=== PATIENT | male | born 1975 | race Caucasian/White ===

== ENCOUNTER 2016-08-13 21:18 | Emergency (ER) | payer BC ==
--- NOTE | 2016-08-13 21:39 | UC ---
Cardiac HPI - HPI Summary HPI Summary: The patient comes in today for: 1. Chest pain: Onset: one hour ago. Palliative/provocative: Nothing makes it better or worse, but he got it as he got up from the dinner table and was walking away. Quality: Burning, sharp. Region/radiation: Retrosternal with radiation up into the neck to the bottom of his jaw. Severity: 08/20 Time: Comes and goes. The patient is better than before. Associated symptoms: Event: He was got up from the dinner table and was walking out when he experienced it. Nausea: None Dyspnea: None. CAD risk factors: HTN: borderline, but "no dagnosis.", DM: (-), Previous heart problems: (-), Fm Hx premature heart disease: (-), cholesterol: "good." Smoker: (-) GERD: Once in a great while. But, this is different than his usual heartburn. His is very concerned about this as "he never complains." * - History of Current Complaint Stated Complaint: CHEST PAIN Time Seen by Provider: 08/13/16 21:29 Hx Obtained From: Patient - Allergy/Home Medications Allergies/Adverse Reactions: Allergies Allergy/AdvReac Type Severity Reaction Status Date / Time No Known Allergies Allergy Verified 08/13/16 21:25 Home Medications: Home Medications Aspirin [Aspirin Adult Low Strengt] 08/13/16 [History] PMH/Surg Hx/FS Hx/Imm Hx Previously Healthy: Yes Endocrine History Of: Denies: Diabetes, Thyroid Disease, Hyperthyroidism, Hypothyroidism, Dyslipidemia Cardiovascular History Of: Denies: Cardiac Disorders, Hypertension, Pacemaker/ICD, Myocardial Infarction , Congestive Heart Failure, Atrial Fibrillation, Deep Vein Thrombosis, Bleeding Disorders Respiratory History Of: Denies: COPD, Asthma, Bronchitis, Pneumonia, Pulmonary Embolism GI/ History Of: Denies: Gastroesophageal Reflux, Ulcer, Gastrointestinal Bleed, Gall Bladder Disease, Kidney Stones, Diverticulitis, Renal Disease, Urosepsis Neurological History Of: Denies: TIA, CVA, Dementia, Seizures, Migraine Psychological History Of: Denies: Anxiety, Depression, Bipolar Disorder, Schizophrenia, Post Traumatic Stress Disorder Cancer History Of: Denies: Lung Cancer, Colorectal Cancer, Breast Cancer, Prostate Cancer, Cervical Cancer Other History Of: Negative For: HIV, Hepatitis B, Hepatitis C, Anticoagulant Therapy - Aspirin not taken daily. - Surgical History Surgical History: Yes Surgery Procedure, Year, and Place: ARTHROSCOPIC LEFT KNEE - Family History Known Family History: Positive: Cardiac Disease - congenital valvular disease, Diabetes Negative: Hypertension - Social History Occupation: Employed Full-time Alcohol Use: Weekly Alcohol Amount: 6/WEEK Substance Use Type: None Smoking Status (MU): Never Smoked Tobacco - Immunization History Most Recent Tetanus Shot: believes he is up to date Review of Systems Constitutional: Negative Skin: Negative Eyes: Negative ENT: Negative Respiratory: Negative Cardiovascular: Negative Gastrointestinal: Negative Genitourinary: Negative Motor: Negative All Other Systems Reviewed And Are Negative: Yes Physical Exam Triage Information Reviewed: Yes Appearance: Well-Appearing, No Pain Distress, Well-Nourished Vital Signs Reviewed: Yes Eyes: Positive: Conjunctiva Clear. Negative: Discharge ENT: Positive: Hearing grossly normal. Negative: Pharyngeal erythema, Nasal congestion, Nasal drainage, TM bulging, TM dull, TM red, Tonsillar swelling, Tonsillar exudate Dental: Negative: Gross Decay/Caries @, Dental Fracture @ Neck: Positive: Supple, Nontender, No Lymphadenopathy. Negative: Nuchal Rigidity Respiratory: Positive: Chest non-tender, Lungs clear, No respiratory distress, No accessory muscle use. Negative: Crackles, Wheezing Cardiovascular: Positive: RRR, No Murmur Abdomen Description: Positive: Nontender, No Organomegaly, Soft. Negative: Distended, Guarding Musculoskeletal: Positive: Strength Intact, ROM Intact Neurological: Positive: Alert, Muscle Tone Normal Psychological: Positive: Normal Response To Family, Age Appropriate Behavior, Consolable Skin: Negative: rashes, breakdown Diagnostics - Laboratory Diagnostic Studies Completed/Ordered: EKG: Rate: 59. Rhythm: Sinus. Ectopy: ( -). Acute changes: (-) - Assessment/Plan Course Of Treatment: The patient was told that I did not know for sure what was causing his/her pain. The patient was told that there are many causes for chest pain--some benign, and some life-threatening. And these life- threatening conditions can be present with minimal, atypical, or even no symptoms. Since we don't have the testing modalities that are commonly used to distinguish between the benign. and life-threatening causes and their timely results, the safest option and therefore my formal recommendation was for her to go for further evaluation. He wanted to go to the ER. - Clinical Impression Provider Diagnoses: Atypical chest pain. - Physician Notifications Discussed Patient Care With: Dr. Gale Time Discussed With Above Provider: 21:58 Discharge - Discharge Plan Condition: Stable Disposition: AGAINST MEDICAL ADVICE Referrals: Thompson Portillo MD [Primary Care Provider] - (Please see your primary care provider as soon as you can after you get out of the hospital.)
[2016-08-13] MEDS ORDERED: Aspirin Low Dose CHEW TAB* 81 MG PO ONE (21:59)
[2016-08-13] MEDS ORDERED: Aspirin Low Dose CHEW TAB* 81 MG ONE (22:02)
[2016-08-13 22:21] VITALS: BP 169/101
== END 2016-08-13 22:29 | disposition left against medical advice (07) ==
LOC: UCEAST 21:18
DX: R07.89 Other chest pain (principal)
CPT/HCPCS: 93005; 99213; A9270-GY; G0463

== ENCOUNTER 2016-08-13 22:48 | Emergency (ER) | payer BC ==
[2016-08-13 23:50] LABS: Hematocrit 45 % (42-52); Hemoglobin 14.9 g/dl (14.0-18.0); Mean Corpuscular HGB Conc 33 g/dl (31-36); Mean Corpuscular Hemoglobin 29 pg (27-31); Mean Corpuscular Volume 86 fL (80-94); Mean Platelet Volume 8 um3 (7.4-10.4); Red Blood Count 5.16 10^6/ul (4.0-5.4); Red Cell Distribution Width 13 % (10.5-15); White Blood Count 6.4 10^3/ul (3.5-10.8)
[2016-08-13 23:59] LABS: Albumin 4.2 g/dL (3.2-5.2); Calcium 9.5 mg/dL (8.6-10.3); EGFR African American 117.5 (>60); EGFR Non-African American 91.4 (>60); Globulin 2.5 g/dL (2-4); Potassium 4.4 mmol/L (3.5-5.0); Total Bilirubin 0.4 mg/dL (0.2-1.0); Total Protein 6.7 g/dL (6.4-8.9)
[2016-08-14 00:06] LABS: Troponin I 0.01 ng/mL (<0.04)
--- NOTE | 2016-08-14 00:33 | ED ---
Roxy Carey Erika, scribed for Dima Vernon MD on 08/13/16 at 2343 . HPI Chest Pain - HPI Summary HPI Summary: Patient is a 41-year-old male presenting to the ED with a CC of left lateral chest pain radiating to the left side of the neck and jaw. Pt reports pain started around 20:40 when he was walking, and resolved within 10 minutes. Pt states he had just eaten prior to pain starting. Pt was treated with aspirin at home and at [facility]. Now, he denies pain. Pt reports he has never had similar pain before. Pt denies Hx diabetes, HTN, hyperlipidemia. Pt does not smoke. - History of Current Complaint Chief Complaint: EDChestWallPain Time Seen by Provider: 08/13/16 23:33 Hx Obtained From: Patient, Family/Corporate Safety Manager - Onset/Duration: Started Hours Ago, Atraumatic, Resolved Timing: Constant Initial Severity: Moderate Current Severity: None Pain Intensity: 0 Pain Scale Used: 0-10 Numeric Chest Pain Location: Left Anterior Chest Pain Radiates: Yes Chest Pain Radiates To:: Jaw, Neck - Allergy/Home Medications Allergies/Adverse Reactions: Allergies Allergy/AdvReac Type Severity Reaction Status Date / Time No Known Allergies Allergy Verified 08/13/16 21:25 PMH/Surg Hx/FS Hx/Imm Hx Endocrine/Hematology History: Denies: Hx Anticoagulant Therapy - Aspirin not taken daily., Hx Diabetes, Hx Thyroid Disease Cardiovascular History: Denies: Hx Congestive Heart Failure, Hx Deep Vein Thrombosis, Hx Hypertension , Hx Myocardial Infarction, Hx Pacemaker/ICD Respiratory History: Denies: Hx Asthma, Hx Chronic Obstructive Pulmonary Disease (COPD), Hx Lung Cancer, Hx Pneumonia, Hx Pulmonary Embolism GI History: Denies: Hx Gall Bladder Disease, Hx Gastrointestinal Bleed, Hx Ulcer, Hx Urosepsis History: Denies: Hx Kidney Stones, Hx Renal Disease Sensory History: Denies: Hx Hearing Aid Neurological History: Denies: Hx Dementia, Hx Migraine, Hx Seizures, Hx Transient Ischemic Attacks (TIA) Psychiatric History: Denies: Hx Anxiety, Hx Depression, Hx Panic Disorder, Hx Schizophrenia, Hx Bipolar Disorder - Surgical History Surgery Procedure, Year, and Place: ARTHROSCOPIC LEFT KNEE Infectious Disease History: No Infectious Disease History: Denies: Hx Hepatitis, Hx Human Immunodeficiency Virus (HIV), Traveled Outside the [place] in Last 30 Days - Family History Known Family History: Positive: Cardiac Disease - congenital valvular disease, Diabetes Negative: Hypertension - Social History Lives: With Family Alcohol Use: Weekly Alcohol Amount: 6/WEEK Hx Substance Use: No Substance Use Type: Reports: None Hx Tobacco Use: No Smoking Status (MU): Never Smoked Tobacco Review of Systems ENT: Other - Pain in neck and jaw Positive: Chest Pain All Other Systems Reviewed And Are Negative: Yes Physical Exam Triage Information Reviewed: Yes Vital Signs On Initial Exam: Initial Vitals Temp Pulse Resp BP Pulse Ox 97.8 F 66 16 153/124 98 08/13/16 23:00 08/13/16 23:00 08/13/16 23:00 08/13/16 23:00 08/13/16 23:00 Vital Signs Reviewed: Yes Appearance: Positive: Well-Appearing, No Pain Distress Skin: Positive: Warm Head/Face: Positive: Normal Head/Face Inspection Eyes: Positive: HAY ENT: Positive: Hearing grossly normal Neck: Positive: Supple Respiratory/Lung Sounds: Positive: Clear to Auscultation, Breath Sounds Present Cardiovascular: Positive: Normal Abdomen Description: Positive: Nontender, Soft Bowel Sounds: Positive: Present Musculoskeletal: Positive: Strength/ROM Intact Neurological: Positive: Normal Psychiatric: Positive: Normal Diagnostics - Vital Signs Vital Signs Temp Pulse Resp BP Pulse Ox 08/13/16 23:00 97.8 F 66 16 153/124 98 - Laboratory Lab Results: Lab Results 08/13/16 08/13/16 Range/Units 22:15 22:15 WBC 6.4 (3.5-10.8) 10^3/ul RBC 5.16 (4.0-5.4) 10^6/ul Hgb 14.9 (14.0-18.0) g/dl Hct 45 (42-52) % MCV 86 (80-94) fL MCH 29 (27-31) pg MCHC 33 (31-36) g/dl RDW 13 (10.5-15) % Plt Count 193 (150-450) 10^3/ul MPV 8 (7.4-10.4) um3 Neut % (Auto) 45.4 (38-83) % Lymph % (Auto) 42.0 (25-47) % [place] % (Auto) 9.6 H (1-9) % Eos % (Auto) 2.3 (0-6) % Baso % (Auto) 0.7 (0-2) % Absolute Neuts (auto) 2.9 (1.5-7.7) 10^3/ul Absolute Lymphs (auto) 2.7 (1.0-4.8) 10^3/ul Absolute Monos (auto) 0.6 (0-0.8) 10^3/ul Absolute Eos (auto) 0.1 (0-0.6) 10^3/ul Absolute Basos (auto) 0 (0-0.2) 10^3/ul Absolute Nucleated RBC 0.01 10^3/ul Nucleated RBC % 0.2 Sodium 135 (133-145) mmol/L Potassium 4.4 (3.5-5.0) mmol/L Chloride 101 (101-111) mmol/L Carbon Dioxide 28 (22-32) mmol/L Anion Gap 6 (2-11) mmol/L BUN 20 (6-24) mg/dL Creatinine 0.91 (0.67-1.17) mg/dL Est GFR ( Amer) 117.5 (>60) Est GFR (Non-Af Amer) 91.4 (>60) BUN/Creatinine Ratio 22.0 H (8-20) Glucose 179 H (70-100) mg/dL Calcium 9.5 (8.6-10.3) mg/dL Total Bilirubin 0.40 (0.2-1.0) mg/dL AST 26 (13-39) U/L ALT 44 (7-52) U/L Alkaline Phosphatase 83 (34-104) U/L Troponin I 0.01 (<0.04) ng/mL Total Protein 6.7 (6.4-8.9) g/dL Albumin 4.2 (3.2-5.2) g/dL Globulin 2.5 (2-4) g/dL Albumin/Globulin Ratio 1.7 (1-3) Result Diagrams: 08/13/16 22:15 08/13/16 22:15 Lab Statement: Any lab studies that have been ordered have been reviewed, and results considered in the medical decision making process. - Radiology CXR Xray Interpretation: No Acute Changes Radiology Interpretation Completed By: ED Physician - EKG 23:07 Cardiac Rate: Bradycardia - at 58 bpm EKG Rhythm: Sinus Bradycardia Re-Evaluation - Re-Evaluation First Eval Re-Evaluation Time: 03:13 Change: Improved Comment: Patient is sleeping pain free. Will be discharged. Chest Pain Course/Dx - Course Assessment/Plan: A 41 y/o M presents to the ED with a CC of an episode of chest pain lasting 10 minutes. On arrival to the ED, chest pain has subsided. Initial troponin is 0.01 and 3 hour repeat troponin is 0.00. Patient is resting comfortably in the ED and will be discharged with follow up from his PCP. - Diagnoses Provider Diagnoses: Chest pain Discharge - Discharge Plan Condition: Stable Disposition: HOME Patient Education Materials: Chest Pain (ED) Referrals: Thompson Portillo MD [Primary Care Provider] - The documentation as recorded by the Roxy mcgrath Erika accurately reflects the service I personally performed and the decisions made by me, Dima Vernon MD.
[2016-08-14 04:06] VITALS: BP 144/90
--- NOTE | 2016-08-14 07:20 | RAD ---
INDICATION: Chest pain COMPARISON: None TECHNIQUE: PA and lateral views of the chest were obtained. FINDINGS: The heart and mediastinum are normal in size and contour. The right hilum appears asymmetrically lobular relative to the left but this is unchanged from the previous chest x-ray. The lungs are grossly clear. There is no evidence of large pleural effusion. Visualized bones are normal for the patient's age. There is no radiographic evidence of free air beneath the diaphragm IMPRESSION: No radiographic evidence of acute cardiopulmonary disease.
== END 2016-08-14 04:02 | disposition home or self-care (01) ==
LOC: ED 22:48
DX: R07.9 Chest pain, unspecified (principal)
CPT/HCPCS: 36415; 71020; 80053; 84484; 85025; 93005; 99213; 99284; A9270-GY; G0463